=== PATIENT | female | born 1995 | race Caucasian/White ===

== ENCOUNTER 2020-04-01 14:36 | Emergency (ER) | payer SELFPAY ==
[2020-04-01 14:45] VITALS: BP 124/55; PULSE 80; RESP 20; TEMP 36.3; O2SAT 99
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
[2020-04-01] MEDS: KETOROLAC 60 MG/2 ML VIAL 30 MG IM (16:53)
[2020-04-01 18:13] VITALS: BP 112/78; PULSE 68; RESP 18; O2SAT 99
== END 2020-04-01 18:14 | disposition home or self-care (01) ==
PROVIDERS: Emergency Provider Emergency Medicine
DX: S16.1XXA Strain of muscle, fascia and tendon at neck level, initial encounter (principal); M54.9 Dorsalgia, unspecified; V89.2XXA Person injured in unspecified motor-vehicle accident, traffic, initial encounter
CPT/HCPCS: 71046; 72040; 72072; 96372; 99283; J1885